=== PATIENT | male | born 1935 | race Caucasian/White ===

== ENCOUNTER → 2016-11-24 | Outpatient (CLI) | payer OTHER, BC ==
[~2016-11-24] MED LIST: BUDE0.25 INH; CALC625T35 PO; CLR10 PO; FESO4TAB PO; GLCSUNK; METO25TA56 PO; PRD150 PO; VERA120T15 PO; VITAMIND
== END | disposition home or self-care (01) ==
LOC: C.RDSM 14:21
PROVIDERS: ATTEND Physical Medicine & Rehabilitation Sports Medicine
DX: Z96.651 Presence of right artificial knee joint (principal)

== ENCOUNTER → 2016-12-24 | Outpatient (CLI) | payer OTHER, BC | END | disposition home or self-care (01) | LOC: C.LABBC 10:55 | PROVIDERS: ATTEND Urology | DX: N40.1 Benign prostatic hyperplasia with lower urinary tract symptoms (principal) ==

== ENCOUNTER → 2017-06-29 | Outpatient (CLI) | payer OTHER, BC | END | disposition home or self-care (01) | LOC: C.PATHSPEC 17:34 | PROVIDERS: ATTEND Surgery | DX: C44.42 Squamous cell carcinoma of skin of scalp and neck (principal) ==

== ENCOUNTER → 2017-07-24 | Outpatient (CLI) | payer OTHER, BC | END | disposition home or self-care (01) | LOC: C.LABSPEC 14:46 | PROVIDERS: ATTEND Nurse Practitioner Family | DX: R39.15 Urgency of urination (principal); R35.0 Frequency of micturition ==

== ENCOUNTER → 2017-08-25 | Outpatient (CLI) | payer OTHER, BC | END | disposition home or self-care (01) | LOC: C.LABSPEC 17:07 | PROVIDERS: ATTEND Nurse Practitioner Adult Health | DX: R35.0 Frequency of micturition (principal) ==

== ENCOUNTER → 2017-11-23 | Outpatient (CLI) | payer OTHER, BC ==
[~2017-11-23] MED LIST changes: +DABI150C3 PO; -PRD150 PO
== END | disposition home or self-care (01) ==
LOC: C.RDSM 08:00
PROVIDERS: ATTEND Physical Medicine & Rehabilitation Sports Medicine
DX: Z96.651 Presence of right artificial knee joint (principal)

== ENCOUNTER → 2017-12-01 | Outpatient (CLI) | payer OTHER, BC ==
[2017-12-01 11:01] LABS: HEMATOCRIT 42.7 % (42-52); HEMOGLOBIN 14.5 g/dL (14.0-18.0); MEAN CELL VOLUME 97.5 fL (80-100); MEAN CORPUSCULAR HEMOGLOBIN 33.1 pg (25-34); MEAN PLATELET VOLUME 10.1 fL (7.4-10.4); PLATELET COUNT 175 K/uL (130-400); RED CELL DISTRIBUTION WIDTH CV 13.9 % (11.5-14.5); RED CELL DISTRIBUTION WIDTH SD 49.7 fL (36.4-46.3); WHITE BLOOD COUNT 4.65 K/uL (4.8-10.8)
[2017-12-01 11:31] LABS: ALBUMIN 3.4 gm/dl (3.4-5.0); ALT/SGPT 37 U/L (12-78); AST/SGOT 27 U/L (15-37); BLOOD UREA NITROGEN 19 mg/dl (7-18); CALCIUM 9.3 mg/dl (8.5-10.1); CARBON DIOXIDE 29 mmol/L (21-32); CHOLESTEROL 167 mg/dl (0-200); CREATININE 1.06 mg/dl (0.60-1.40); GLUCOSE 95 mg/dl (70-99); SODIUM 138 mmol/L (136-145); TRANSFERRIN 244 mg/dl (200-360)
[2017-12-01 11:34] LABS: ALKALINE PHOSPHATASE 81 U/L (45-117); LDL CHOLESTEROL CALCULATED 94 mg/dl; TOTAL PROTEIN 7.3 gm/dl (6.4-8.2)
== END | disposition home or self-care (01) ==
LOC: C.LABBC 07:43
PROVIDERS: ATTEND Internal Medicine Interventional Cardiology
DX: I48.0 Paroxysmal atrial fibrillation (principal)

== ENCOUNTER 2018-12-22 05:20 | Observation (INO) ==
--- NOTE | 2018-12-01 12:12 | Anesthesiology Consultation ---
Date of Service December 01, 2018 Assessment & Plan (1) Encounter for pre-operative examination: Chart Review Chart Review: Acceptable Risk for Surgery and Patient seen in Pre Admission Testing Consults Requested medical & cardiac (NATY Traore (12/09/18) & Dr. Baker (12/07/18)) Patient was seen by Dr. Alberto on 12/03 for device (pacer) check after there was a lack of ventricular capture on EKG. " As near as I can tell he has been in atrial fibrillation since his last visit, the pacemaker diagnostics may not be complete because his atrial fibrillation sensing is quite low and there are times when he does not sense properly. The pacing threshold is up somewhat, it is 2 V today and he is programmed to 2.4 V. The lead impedance trend is not terribly abnormal although there is a very gradual increase in impedance since his last visit but still well within the normal range. He does space 55% of the time in the ventricle, but that is likely the way the device is programmed ( with rate response on) rather than a requirement to pace. I therefore reprogrammed the device to VVI mode at 50 bpm and increase the output to 4 V. This will be safe for the time being and we will follow the lead." Cardio note from visit on 12/07/18 states that patient is doing well from a cardiovascular standpoint. "He is felt to be low surgical risk to proceed with inguinal hernia repair without additional cardiac testing/intervention. He can hold his Pradaxa for 48 hours prior to the procedure and restart as soon as deemed safe from a surgical standpoint." PCP note from visit on 12/09/18. "The patient was found to be at acceptable cardiopulmonary risk for the planned procedure and may proceed as scheduled." Teaching & Discussion Pre-Anesthesia Teaching/Discussion Notes: Instructed NPO after midnight before surgery, except medications with 15 cc of water. Medication instructions provided according to the PAT guidelines. History Surgery Operation Date: 12/22/18 07:00 Proposed Procedures p Right Laparoscopic Inguinal Hernia repair, Possible Laparoscopic Left Inguinal Hernia Repair, Possible Open - Cristian Youssef DO, FACS Height/Weight Height: 6 ft 1 in Weight: 90.4 kg Allergies Allergy/AdvReac Type Severity Reaction Status Date / Time Penicillins Allergy Mild RASH Verified 11/24/18 09:41 Medications Home Medications Medication Instructions Recorded Confirmed Last Taken calcium polycarbophil [Fiber 1,250 mg PO BID 11/24/18 11/24/18 Unknown (calcium polycarbophil)] cholecalciferol (vitamin D3) 1,000 unit PO QPM 11/24/18 11/24/18 Unknown [Vitamin D3] dabigatran etexilate [Pradaxa] 150 mg PO BID 11/24/18 11/24/18 Unknown glucosamine-chondroitin 1 tab PO BID 11/24/18 11/24/18 Unknown loratadine 10 mg PO DAILY PRN 11/24/18 11/24/18 Unknown verapamil 240 mg PO QPM 11/24/18 11/24/18 Unknown Past Medical History Medical History Atrial fibrillation Chronic obstructive pulmonary disease History of cerebral hemorrhage HX OF IN 2010, PT HIT HEAD ON A WATERSLIDE WHILE ON VACATION. PT WAS ADMITTED AND MONITORED FOR SEVERAL DAYS, NO SURGICAL INTERVENTION. Pacemaker Biotronik EVIADRT Implanted 05/13/16. Mode DDD-CLS. Past Surgical History Surgical History History of surgery PACEMAKER IMPLANT History of surgery UVELECTOMY History of total knee replacement RIGHT Past Anesthesia History No Hx of Anesthesia Complications and No Family Hx of Anesthesia Complications History of PONV No Motion Sickness Screening History of Motion Sickness: No (Not since childhood) Social History Smoking Status: Former smoker tobacco type: cigarettes Smoking cigarettes per day: QUIT IN 1984. HX OF 3PPD x 25-30 years Do You Dip or Chew Tobacco: No Hx Alcohol Use: Yes Alcohol type: other alcohol intake frequency: a few times a week Alcohol Intake Frequency Comment: 4-5 DRINKS PER WEEK Hx Substance Use: No substance use type: does not use Exercise / Class Metabolic Activity II 4-5 Yardwork/Stairs/Walk up hill (Walks dog 3 times per day. Prompt Care Rn comes to house 2 times per week. Able to climb FOS. Denies CP with FOS. Does get SOB if he runs up 3 FOS consecutively. ) Review of Systems Patient denies chest pain, shortness of breath, reflux (if he takes pills on empty stomach only), cough, wheezing, +RANGEL (gets RANGEL if he runs up 3 FOS consecutively) +joint pain (left knee) + palpitations Physical Exam Vital Signs BP: 132/85 P: 71 R: 18 T: 97.9 SPO2: 95% on RA ENMT Mouth: + dental restorations Thyromental Distance: < 3.5 Finger Breadths (3) Mallampati Class: II Mouth / Teeth: 2 1. Uvulectomy Neck normal visual inspection and trachea midline; neck extension not limited Respiratory normal respiratory effort Auscultation: lungs clear to auscultation bilaterally Cardiovascular Heart Sounds: no murmur Vessels: no carotid bruit Irregularly, irregular rate/rhythm Neurologic moves all extremities Psychiatric Orientation: alert and oriented x 3 Testing Electrocardiogram Date: 12/01/18 Findings: + AFIB @ (73) Possible lack of ventricular capture (last complex). A. Fib with occasional ventricular paced complexes. RBBB. When compared with ECG of 05/13/16, ventricular rate has decreased by 19bpm and possible loss of ventricular capture is now present. (Patient was brought in to see Dr. Alberto because of this result). Chest X-Ray Date: 12/01/18 FINDINGS: Mild stable cardia megaly. Mild emphysematous change. Tortuous thoracic aorta. No focal infiltrative process. Bipolar cardiac pacemaker in good position. IMPRESSION: Mild emphysematous change. No acute process. Laboratory Results 12/01/18 12:40 12/01/18 12:40
--- NOTE | 2018-12-01 12:31 | PAT Medication Instructions ---
Medication Instructions Date of Service December 01, 2018 Home Medications calcium polycarbophil [Fiber] 1,250 mg PO BID cholecalciferol (vitamin D3) 1,000 unit PO QPM dabigatran etexilate [Pradaxa] 150 mg PO BID glucosamine-chondroitin 1 tab PO BID loratadine 10 mg PO DAILY PRN verapamil 240 mg PO QPM ASK your prescriber and surgeon dabigatran etexilate [Pradaxa] 150 mg PO BID STOP taking 2 weeks before surgery glucosamine-chondroitin 1 tab PO BID DO NOT take the morning of surgery calcium polycarbophil [Fiber] 1,250 mg PO BID loratadine 10 mg PO DAILY PRN Take morning of surgery NOTHING TO EAT OR DRINK AFTER MIDNIGHT: Take evening before surgery calcium polycarbophil [Fiber] 1,250 mg PO BID cholecalciferol (vitamin D3) 1,000 unit PO QPM verapamil 240 mg PO QPM Other Notes If you have any questions please call us at [phone] or [phone] or [phone] or [phone]
[2018-12-01 13:05] LABS: Basophils # (auto) 0.02 K/uL (0-0.2); Basophils % (auto) 0.4 %; Eosinophils # (auto) 0.06 K/uL (0-0.5); Eosinophils % (auto) 1.1 %; Hematocrit (blood only) 43.3 % (42-52); Hemoglobin 14.5 g/dL (14.0-18.0); Immature Granulocytes # (auto) 0.01 K/uL (0.00-0.02); Immature Granulocytes % (auto) 0.2 %; Lymphocytes # (auto) 1.33 K/uL (1.2-3.4); Lymphocytes % (auto) 23.9 %; Mean Corpuscular Hgb Conc 33.5 g/dL (32-36); Mean Corpuscular Volume 97.7 fL (80-100); Mean Platelet Volume 9.9 fL (7.4-10.4); Monocytes # (auto) 0.47 K/uL (0.11-0.59); Monocytes % (auto) 8.5 %; Neutrophils # (auto) 3.67 K/uL (1.4-6.5); Neutrophils % (auto) 65.9 %; Platelet Count 190 K/uL (130-400); RDW Coefficient of Variation 14.3 % (11.5-14.5); Red Blood Count 4.43 M/uL (4.7-6.1); White Blood Count 5.56 K/uL (4.8-10.8)
--- NOTE | 2018-12-01 13:23 | XRay Report ---
XR chest Pre-admission PA/Lat CLINICAL HISTORY: pat preoperative evaluation COMPARISON STUDY: 05/31/2014 FINDINGS: Mild stable cardia megaly. Mild emphysematous change. Tortuous thoracic aorta. No focal inf iltrative process. Bipolar cardiac pacemaker in good position. IMPRESSION: Mild emphysematous change. No acute process. The above report was generated using voice recognition software. It may contain grammatical, syntax or spelling errors. Electronically signed by: Amandeep Wilkerson M.D. 12/01/2018 1:21 PM
[2018-12-01 13:32] LABS: Albumin Level 3.6 gm/dl (3.4-5.0); BUN Creatinine Ratio 16.3 (10-20); Bilirubin Direct 0.2 mg/dl (0-0.2); Calcium 9.2 mg/dl (8.5-10.1); Creatinine Clr Calc Pharmacy 64.6 ml/min; Est GFR (African American) 79.1; Est GFR (Non-African American) 68.3; Potassium 4.4 mmol/L (3.5-5.1)
[2018-12-01 13:35] LABS: Bilirubin,Total 0.6 mg/dl (0.2-1); Total Protein 7.4 gm/dl (6.4-8.2)
[2018-12-22] MEDS ORDERED: LR 15ML/HR IV SCH (06:00)
[2018-12-22] MEDS ORDERED: CLINDAMYCIN 900 MG / 50ML D5W IV SCH (06:00)
[2018-12-22 06:07] LABS: INR 1.1 (0.9-1.1); Partial Thromboplastin Ratio 1.1; Partial Thromboplastin Time 29.6 Seconds (21.0-31.0)
[2018-12-22] MEDS ORDERED: BUPIVACAINE 0.5 % 5 MG/1 ML MPF 30ML VIAL ONE (06:41)
[2018-12-22] MEDS ORDERED: PROPOFOL IV EMULSION 10 MG/ML 20 ML VIAL IV ONE (06:44)
[2018-12-22] MEDS ORDERED: ePHEDrine sulfate 50 MG/ML AMP ONE (06:44)
[2018-12-22] MEDS ORDERED: GLYCOPYRROLATE 0.2 MG/ML VIAL ONE (06:44)
[2018-12-22] MEDS ORDERED: LIDOCAINE HCL 2% 2 ML VIAL/AMP(20MG/ML) INFIL ONE (06:44)
[2018-12-22] MEDS ORDERED: SUCCINYLCHOLINE CHLORIDE 20 MG/ML 10 ML VIAL ONE (06:44)
[2018-12-22] MEDS ORDERED: fentaNYL citrate 100 MCG/2 ML VIAL ONE (06:44)
[2018-12-22] MEDS ORDERED: PHENYLEPHRINE HCL 10 MG/ML VIAL ONE (06:44)
[2018-12-22] MEDS ORDERED: NEOSTIGMINE METHYLSULFATE 5 MG/5 ML SYR ONE (06:44)
[2018-12-22] MEDS ORDERED: ONDANSETRON INJ 2 MG/ML 2 ML VIAL ONE (06:44)
[2018-12-22] MEDS ORDERED: DEXAMETHASONE SOD INJ 4 MG/ML VIAL ONE (06:44)
--- NOTE | 2018-12-22 06:56 | History & Physical Bridge Note ---
Date of Service December 22, 2018 History & Physical Bridge Note I have examined the patient, reviewed the History & Physical and in the interval since the performance of the History & Physical I have noted the following changes of clinical significance: no changes noted
[2018-12-22] MEDS ORDERED: CISATRACURIUM BESYLATE IV SOLN 2 MG/ML 10 ML VIAL IV ONE (07:14)
[2018-12-22] MEDS ORDERED: ATROPINE SULFATE 0.1 MG/ML 10ML SYR IV PRN (08:00)
[2018-12-22] MEDS ORDERED: HYDROmorphone INJ 1 MG/ML SYRINGE IV PRN (08:00)
[2018-12-22] MEDS ORDERED: NALOXONE HCL 0.4 MG/1 ML VIAL/CARP IV PRN (08:00)
[2018-12-22] MEDS ORDERED: PROMETHAZINE HCL 12.5 MG in SODIUM CHLORIDE 0.9% 50 ML IV PRN (08:00)
[2018-12-22] MEDS ORDERED: ePHEDrine sulfate 50 MG/ML AMP IV PRN (08:00)
[2018-12-22] MEDS ORDERED: ONDANSETRON INJ 2 MG/ML 2 ML VIAL IV PRN ×2 (08:00→10:34)
[2018-12-22] MEDS ORDERED: LABETALOL HCL IV 5 MG/ML 20ML IV PRN (08:00)
[2018-12-22] MEDS ORDERED: FLUMAZENIL 0.1 MG/1 ML 10 ML VIAL IV PRN (08:00)
[2018-12-22] MEDS ORDERED: LIDOCAINE 2% 20 MG/ML 5 ML SYR IV ONE (08:13)
[2018-12-22] MEDS ORDERED: ePHEDrine sulfate 50 MG/ML SYR ONE (08:13)
[2018-12-22] MEDS ORDERED: PHENYLEPHRINE 100MCG/ML 5ML SYR ONE (08:13)
--- NOTE | 2018-12-22 09:04 | Operative Report ---
Post Operative Report Pre & Post Diagnosis Operation Date: 12/22/18 07:00 Pre-Op Diagnosis: Right Inguinal Hernia Post-Op Diagnosis: Right Inguinal Hernia Procedure Operation Date: 12/22/18 07:00 Actual Procedures p Right Laparoscopic Inguinal Hernia Repair(Right) - Cristian Youssef DO, LISA Surgeon Cristian Youssef DO, LISA Bag Machine Helper Fran Hines PA-C Estimated Blood Loss 7 Findings Consistent with Post-Op Diagnosis Large, heavily scarred indirect right inguinal hernia. Vas deferens part of the spermatic cord incidentally rate divided during case. Good hemostasis. Discussed with Dr. Ko from urology, recommended expectant management rather than orchiectomy. Pro-label drier mesh placed on the right. No obvious inguinal hernia on the left. Specimens None Anesthesia Type General Complications Division of vas deferens and part of spermatic cord. Disposition Accompanied Patient To Recovery: No Disposition: Recovery Room Indications 83-year-old male with symptomatic moderate to large sized right inguinal hernia. Discussed his options to include open versus laparoscopic repair. Patient elects for laparoscopic repair. Plan for laparoscopic right inguinal hernia repair, possible left. The risks of the procedure were discussed, all questions were answered, and the patient agreed to proceed with surgery as planned. Description of Procedure The patient was properly identified, consented, and taken to the operating room where he was placed in the supine position. General endotracheal anesthesia was induced. SCDs and a safety belt were placed. A champagne catheter was placed. Preoperative antibiotics were administered. The patient's groins and abdomen were prepped and draped in the standard sterile fashion. Surgical timeout was performed and all parties were in agreement that this was the correct patient and procedure to be performed and we continued as planned. A transverse infraumbilical incision was made to the left of midline with electrocautery and deepened down to the fascia with blunt dissection. A transverse incision was made in the anterior rectus sheath on the left. The rectus muscle was pulled laterally exposing the posterior rectus sheath. A large Teressa was used to bluntly dissect the preperitoneal space down to the pubic symphysis. This was then replaced with a laparoscopic preperitoneal dissection balloon, which was inflated under direct visualization and held in place for approximately 30 seconds. This was then removed and the preperitoneal space was insufflated with carbon dioxide which the patient tolerated without incident. Two 5 mm ports were then placed in the midline. Dissection started on the right, beginning laterally at the anterior superior iliac spine. Be's ligament was then dissected medially. The cord structures were circumferentially dissected. A large indirect inguinal hernia was noted. It was significantly scarred and the dissection was quite difficult. During the course of the dissection it appeared that we had divided the vas deferens. A firm remnant was clipped. Part of the spermatic cord was also divided. There was still's some portions of the cremaster and venous plexus present. The hernia sac was reduced. I discussed the case with Dr. Ko from urology , and since there is good possibility for collateral blood supply, we agreed to forego orchiectomy at this time. The contralateral side was briefly examined and no obvious hernia was noted. I decided against any further dissection on the left to prevent injury to the testicle as well. Progrip mesh was placed on the right and covered the direct, indirect, and femoral spaces. The mesh was held in place, the ports were removed, and the space was allowed to collapse. The anterior rectus sheath fascia was closed with 3-0 Vicryl suture. The skin of all port sites were closed with 4-0 Monocryl subcuticular suture, and Dermabond was placed over the incisions. The patient was extubated in the operating room and taken to the PACU for recovery without apparent incident. Any air in the scrotum was reduced, and the testicles were confirmed to be in the scrotum. All sponge, instrument, and needle counts were correct at the conclusion of the procedure. The patient tolerated the procedure well. After this case I discussed the intraoperative findings with the . The physician's library assistant was present and scrubbed for the entire the case. He was critical in positioning the patient, prepping and draping, retraction exposure, closure of the incisions, placement of the dressings. I attest to the content of the Intraoperative Record and any orders documented therein. Any exceptions are noted below.
--- NOTE | 2018-12-22 09:57 | Anesthesiology Progress Note ---
Date of Service December 22, 2018 Anesthesia Post Procedure Vital Signs Vital Signs: Temp Pulse Pulse Resp BP BP Pulse Ox 12/22/18 09:45 73 15 106/70 97 12/22/18 09:35 71 14 121/71 99 12/22/18 09:25 73 17 125/75 96 12/22/18 09:19 36.3 C L 80 16 119/75 96 12/22/18 05:44 36.5 C 65 18 158/89 H 98 Notes Mental Status: alert / awake / arousable Patient Amnestic to Procedure: Yes Nausea / Vomiting: adequately controlled Pain: adequately controlled Airway Patency, RR, SpO2: stable & adequate BP & HR: stable & adequate Hydration State: stable & adequate Anesthetic Complications: no major complications apparent
[2018-12-22] MEDS ORDERED: MoRPHine SULFATE 2 MG/ML CARP IV PRN (10:34)
[2018-12-22] MEDS ORDERED: OXYCODONE/ACETAMINOPHEN 5mg/325mg TAB PO PRN ×2 (10:34)
[2018-12-22] MEDS ORDERED: LACTATED RINGER'S 1,000 ML IV SCH (10:45)
[2018-12-22] MEDS ORDERED: VERAPAMIL HCL 240 MG TABCR PO SCH (21:00)
--- NOTE | 2018-12-23 09:34 | Surgery Progress Note ---
Date of Service December 23, 2018 Assessment & Plan (1) Right inguinal hernia: doing well, ok for discharge Subjective tolerating diet, some testicular swelling but no pain, minimal right groin pain Physical Exam 2 Vital Signs (Past 24 Hours): Last Vital Signs Temp 36.6 C 12/23/18 07:05 Pulse 72 12/23/18 07:05 Resp 16 12/23/18 07:05 BP 128/75 12/23/18 07:05 Pulse Ox 95 12/23/18 07:05 Gastrointestinal (Abdomen): Inspection/Auscultation: + abdominal surgical incision (clean, dry) Percussion/Palpation: abdomen soft right testicle egg sized, nontender, some penile ecchymosis
--- NOTE | 2018-12-27 19:16 | Discharge Summary ---
PRIMARY DISCHARGE DIAGNOSIS: Right inguinal hernia. PROCEDURE PERFORMED: Right laparoscopic inguinal hernia repair. HOSPITAL COURSE: The patient is an 83-year-old male with large right inguinal hernia taken to the operating room for laparoscopic repair. Intraoperatively the hernia was large, heavily scarred, indirect hernia. The vas deferens and part of the spermatic cord were incidentally divided during dissection. The procedure was well tolerated. He was transferred to the surgical floor for overnight observation as was the plan preoperatively. On postoperative day 1, he was tolerating diet and oral analgesics. He was not having any testicular pain. He did have some right testicular swelling but no pain. His incisions were clean and dry. He was stable for discharge. DISCHARGE INSTRUCTIONS: Discharge home. Follow up with Dr. Youssef in 1-2 weeks as planned. DISCHARGE MEDICATIONS: Percocet 1-2 tablets every 4 hours as needed, Pradaxa 150 mg p.o. b.i.d., verapamil 240 mg daily, loratadine 10 mg daily, glucosamine supplement, vitamin D3 supplement, and fiber supplement.
== END 2018-12-23 12:03 | disposition home or self-care (01) ==
LOC: ASU 05:20 → 3N 05:20

== ENCOUNTER 2023-02-10 12:53 | Inpatient (IN) ==
--- NOTE | 2023-02-10 13:10 | ED Triage Note ---
Date of Service February 10, 2023 History of Present Illness This patient was briefly evaluated while in triage. An abbreviated physical exam was performed. This patient is a 87-year-old Male who presents to the ED for evaluation of rectal bleeding since been done last night. The patient is currently undergoing chemotherapy for stage IV prostate cancer. The patient has had issues with rectal bleeding while undergoing prior cancer treatment. The patient reports that the rectal bleeding has usually been with constipations. The patient estimates approximately 4 to 5 ounces of blood loss overnight. The patient is taking Eliquis. The patient reports that the blood is a mix of dark and bright red blood. The patient has had polyps on prior colonoscopies. Physical Exam CONSTITUTIONAL: Healthy and well nourished. Patient does not appear in any ac cain distress. HEENT: No conjunctival pallor. RESPIRATORY: Clear to auscultation bilaterally with no wheezing, crackles, rhonchi or stridor. CARDIOVASCULAR: Regular rate and rhythm with no murmurs, rubs or gallops. GASTROINTESTINAL: Bowel sounds present in all quadrants. No abdominal tenderness to palpation INTEGUMENTARY: No rash or other significant dermatologic conditions noted. HEMATOLOGIC: No ecchymosis or petechiae. PSYCHIATRIC: Positive affect. NEUROLOGIC: No focal neurologic deficits noted. Initial orders for labs and / or imaging were placed and patient was placed in the waiting area until a bed is available. Please see further documentation for the full ED course.
--- NOTE | 2023-02-10 13:44 | Emergency Department Note ---
History of Present Illness General Chief complaint: Rectal Bleed Stated complaint: RECTAL BLEEDING, REF BY DR GIO LAWSON Time Seen by Provider: 02/10/23 13:15 History of Present Illness Provider Complaint: + gross hematochezia Onset (ago): hour(s) (13) Pain Consistency: + constant Current Pain Intensity: 0 Relieved By: + none Exacerbated By: + none Context: + history of GI bleed and + anticoagulant use (eliquis); no liver disease, no alcohol abuse or no known esophageal varices Associated symptoms: no abdominal pain, no nausea, no vomiting, no epistaxis, no fever, no chills, no headaches or no shortness of breath Home Medications Medication Instructions Recorded Confirmed Type cholecalciferol (vitamin D3) 25 2,000 unit PO QAM 11/24/18 02/10/23 History mcg (1,000 unit) capsule (Vitamin D3) clindamycin HCl 300 mg capsule 300 mg PO BID PRN PRIOR TO DENTAL 09/06/21 02/10/23 History PROCEDURE calcium [id number] 2 tab PO BID 12/18/21 02/10/23 History rf-[id number] 250 mg calcium-500 unit tablet (Prosteon) acetaminophen 325 mg capsule 650 mg PO QID PRN Pain 12/30/21 02/10/23 History (Tylenol) verapamil 240 mg tablet,extended 360 mg PO QPM #135 tabs 03/24/22 02/10/23 Rx release mometasone 220 mcg/actuation(120 1 inh inhalation DAILY #1 ea 04/24/22 02/10/23 Rx doses)breath activated powder inhaler ([facility]) azelastine 137 mcg (0.1 %) nasal See Rx Instructions .Route 05/02/22 02/10/23 Rx spray aerosol .COMPLEX #30 mL apixaban 5 mg tablet (Eliquis) 5 mg PO BID #180 tabs 06/09/22 02/10/23 Rx alfuzosin 10 mg tablet,extended 10 mg PO DAILY #90 tabs 07/14/22 02/10/23 Rx release 24 hr (Uroxatral) hydrocortisone 2.5 % topical cream 1 applic MO DAILY PRN hemorrhoids 09/17/22 02/10/23 Rx with perineal applicator #30 grams (Proctozone-HC) leuprolide 7.5 mg (1 month) 7.5 mg subcut ONCE C61 #1 ea 11/11/22 02/10/23 Rx subcutaneous syringe leuprolide 7.5 mg (1 month) 7.5 mg subcut ONCE #1 ea 01/09/23 02/10/23 Rx subcutaneous syringe Allergies Allergy/AdvReac Type Severity Reaction Status Date / Time Penicillins Allergy Mild RASH Verified 01/08/23 11:01 Past Med/Surg History Medical History Acquired deviated nasal septum Cardiac pacemaker Chronic obstructive pulmonary disease COPD (chronic obstructive pulmonary disease) De Quervain's tenosynovitis Elevated prostate specific antigen (PSA) Enlarged prostate Enlarged prostate with lower urinary tract symptoms (LUTS) Epistaxis History of cerebral hemorrhage HX OF IN 2010, PT HIT HEAD ON A WATERSLIDE WHILE ON VACATION. PT WAS ADMITTED AND MONITORED FOR SEVERAL DAYS, NO SURGICAL INTERVENTION. 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) Seasonal allergies Sleep apnea Snoring Stroke syndrome Umbilical hernia Vitamin D deficiency Surgical History Cardiac pacemaker PLACED AND REPLACED-SINCE 2007 History of inguinal hernia repair History of total knee replacement RIGHT History of umbilical hernia repair Family History Father Myocardial infarction Sister Allergies Ovarian cancer Brother Cancer Prostate Cancer Other Coronary heart disease No family history of adverse response to anesthesia No family history of bleeding disorder Denies family history of Prostate cancer Breast cancer Colorectal cancer Social History Smoking Status: Former smoker Tobacco Type: Cigarettes Age Started Using Tobacco: 19; Age Quit Using Tobacco: 50; packs per day: 3; Cigarettes Per Day: 3 PPD; Second Hand Exposure: No; Do You Dip or Chew Tobacco: No; Tobacco Cessation Education Requested by Patient: No Hx Alcohol Use: Yes Alcohol type: beer and hard liquor Alcohol Intake Frequency: Monthly or Less Hx Substance Use: No Preferred Language: Faroese Communication Ability: Effective Visual Impairment: No Limitations Hearing Ability: Hard of Hearing Event Planning Intern Required: No Beliefs That Will Affect Care: None marital status: Current Living Situation: Spouse Current Living Situation Comment: and dog current occupational status: retired Other Information That Helps Us Care for You: No Feels Safe at Home: Yes Safety Concerns: Feels Safe At This Time Childhood Exposure to Second-Hand Smoke: Yes caffeine: Yes during the past year weight has: remained stable Dental Care, Regularly: Yes Physical Activity Frequency: 1-2 Times per Week Seatbelt Use: always Sunscreen Use: Yes Assistive Devices: CPAP Physical Exam Vital Signs: Vital Signs - 24 hr 02/10/23 13:04 02/10/23 13:54 02/10/23 15:20 Temperature 36.5 C Temperature Source Temporal Artery Sc an Pulse Rate 68 Pulse Rate [Apical ] 74 Pulse Rhythm Regular Pulse Strength Normal Respiratory Rate 18 20 Respiratory Effort / Characteristics Non-Labored Sponta neous Respiratory Depth Normal Respiratory Patter n Regular Blood Pressure 138/78 Blood Pressure [Le ft Arm] 144/85 H Blood Pressure Nurys n 98 Blood Pressure Nurys n [Left Arm] 104 Blood Pressure Pos ition Sitting Pulse Oximetry 97 98 97 Oxygen Delivery Me thod Room Air Room Air Room Air Sepsis Recent Feve r Within 48 Hours No Sepsis New/Unexpla ined Change in Men brock Status No Sepsis Action Take n by Nursing No Action Required 02/10/23 16:24 Temperature Temperature Source Pulse Rate 80 Pulse Rate [Apical ] Pulse Rhythm Pulse Strength Respiratory Rate Respiratory Effort / Characteristics Respiratory Depth Respiratory Patter n Blood Pressure Blood Pressure [Le ft Arm] Blood Pressure Nurys n Blood Pressure Nurys n [Left Arm] Blood Pressure Pos ition Pulse Oximetry Oxygen Delivery Me thod Sepsis Recent Feve r Within 48 Hours Sepsis New/Unexpla ined Change in Men brock Status Sepsis Action Take n by Nursing Physical Exam: Physical Exam GENERAL: He is oriented to person, place, and time. He appears well-developed and well-nourished. He does not appear distressed. HENT: Exam performed. - Head: Normocephalic and atraumatic. - Right Ear: External ear normal. No mastoid erythema - Left Ear: External ear normal. No mastoid erythema EYES: Conjunctivae and EOM are normal. Right eye exhibits no discharge. Left eye exhibits no discharge. No scleral icterus. NECK: Normal range of motion. Neck supple. No JVD present. No tracheal deviation and normal range of motion present. CV: Normal rate, irregular rhythm, normal heart sounds and intact distal pulses. There is no peripheral edema. Palpable radial pulses bue. PULM/CHEST: Effort normal and breath sounds normal. No respiratory distress. No stridor. He has no wheezes. He has no rales. ABD: The abdomen is soft.He has no distension. There is no tenderness. There is no rebound, no guarding. Rectal: Bright red blood per rectum. NEURO: He is alert and oriented to person, place, and time. He has normal strength. No cranial nerve deficit or sensory deficit. Coordination and gait normal. GCS eye subscore is 4. GCS verbal subscore is 5. GCS motor subscore is 6. Cerebellar tests wnl. SKIN: Skin is warm and dry. He is not diaphoretic. PSYCH: He has a normal mood and affect. Behavior is normal. Judgment and thought content normal. Course Course 1315: The patient was evaluated in room C7. A complete history and physical exam was performed Cardiac monitoring: An order was placed for continuous cardiac monitoring. The monitor shows a rate of 70 with atrial flutter rhythm interpreted by or 1530: Vital signs stable. Labs within normal limits. Hemoglobin 11.6. No pain on palpation of abdomen. [facility] serial hemoglobins and GI evaluation. Dr. Ellison team notified. Medical Decision Making Laboratory Data Attestation: I reviewed the patient's lab results. 02/10/23 13:33 02/10/23 13:50 Lab Results 02/10/23 02/10/23 02/10/23 Range/Units 13:33 13:33 13:33 WBC 4.69 L (4.8-10.8) K/ul RBC 3.57 L (4.70-6.10) M/uL Hgb 11.6 L (14.0-18.0) g/dl Hct 34.2 L (42.0-52.0) % MCV 95.8 (80.0-100.0) fL MCH 32.5 (25.0-34.0) pg MCHC 33.9 (32.0-36.0) g/dL RDW Std Deviation 54.6 H (36.4-46.3) fL RDW Coeff of Alyssa 15.5 H (11.5-14.5) % Plt Count 201 (130-400) K/uL MPV 9.4 (9.4-12.4) fL Immature Gran % (Auto) 0.2 % Neut % (Auto) 79.0 % Lymph % (Auto) 11.5 % Coryell % (Auto) 7.2 % Eos % (Auto) 1.5 % Baso % (Auto) 0.6 % Neut # (Auto) 3.70 (1.40-6.50) K/uL Lymph # (Auto) 0.54 L (1.2-3.4) K/uL Coryell # (Auto) 0.34 (0.11-0.59) K/uL Eos # (Auto) 0.07 (0-0.50) K/uL Baso # (Auto) 0.03 (0-0.2) K/uL Immature Gran # (Auto) 0.01 (0.01-0.20) K/uL PT 11.3 (9.0-12.0) Seconds INR 1.1 (0.9-1.1) APTT 28.0 (21.0-31.0) Seconds PTT Ratio 1.0 Sodium (136-145) mmol/L Potassium (3.5-5.1) mmol/L Chloride (98-107) mmol/L Carbon Dioxide (21-32) mmol/L Anion Gap (3-11) BUN (6-23) mg/dl Creatinine (0.6-1.4) mg/dl Est Cr Clr Drug Dosing ml/min Est GFR ( Amer) ml/min Est GFR (Non-Af Amer) ml/min BUN/Creatinine Ratio (10-20) Glucose (70-99(Fasting)) mg/dl Calcium (8.6-10.3) mg/dl Total Bilirubin (0.2-1.0) mg/dl Direct Bilirubin (0-0.2) mg/dl AST (13-39) U/L ALT (7-52) U/L Alkaline Phosphatase (34-104) U/L Total Protein (6.0-8.3) gm/dl Albumin (3.4-5.0) gm/dl Lipase (11-82) U/L SARS-CoV-2, RNA, NAAT (NEGATIVE) Blood Type A Positive Antibody Screen NEGATIVE 02/10/23 02/10/23 Range/Units 13:50 13:50 WBC (4.8-10.8) K/ul RBC (4.70-6.10) M/uL Hgb (14.0-18.0) g/dl Hct (42.0-52.0) % MCV (80.0-100.0) fL MCH (25.0-34.0) pg MCHC (32.0-36.0) g/dL RDW Std Deviation (36.4-46.3) fL RDW Coeff of Alyssa (11.5-14.5) % Plt Count (130-400) K/uL MPV (9.4-12.4) fL Immature Gran % (Auto) % Neut % (Auto) % Lymph % (Auto) % Coryell % (Auto) % Eos % (Auto) % Baso % (Auto) % Neut # (Auto) (1.40-6.50) K/uL Lymph # (Auto) (1.2-3.4) K/uL Coryell # (Auto) (0.11-0.59) K/uL Eos # (Auto) (0-0.50) K/uL Baso # (Auto) (0-0.2) K/uL Immature Gran # (Auto) (0.01-0.20) K/uL PT (9.0-12.0) Seconds INR (0.9-1.1) APTT (21.0-31.0) Seconds PTT Ratio Sodium 138 (136-145) mmol/L Potassium 4.0 (3.5-5.1) mmol/L Chloride 104 (98-107) mmol/L Carbon Dioxide 28 (21-32) mmol/L Anion Gap 6 (3-11) BUN 19 (6-23) mg/dl Creatinine 1.12 (0.6-1.4) mg/dl Est Cr Clr Drug Dosing 49.8 ml/min Est GFR ( Amer) 69.1 ml/min Est GFR (Non-Af Amer) 59.6 ml/min BUN/Creatinine Ratio 17.0 (10-20) Glucose 82 (70-99(Fasting)) mg/dl Calcium 9.6 (8.6-10.3) mg/dl Total Bilirubin 0.8 (0.2-1.0) mg/dl Direct Bilirubin 0.2 (0-0.2) mg/dl AST 19 (13-39) U/L ALT 14 (7-52) U/L Alkaline Phosphatase 100 (34-104) U/L Total Protein 7.1 (6.0-8.3) gm/dl Albumin 4.2 (3.4-5.0) gm/dl Lipase 8 L (11-82) U/L SARS-CoV-2, RNA, NAAT NEGATIVE (NEGATIVE) Blood Type Antibody Screen ECG Data Attestation: I personally reviewed and interpreted this ECG as follows: Rate (beats per minute): 66 Rhythm: atrial flutter Findings: + RBBB; no ST depression, no ST elevation or no prolonged QT MDM Narrative 1315: The patient was evaluated in room C7. A complete history and physical exam was performed Cardiac monitoring: An order was placed for continuous cardiac monitoring. The monitor shows a rate of 70 with atrial flutter rhythm interpreted by me 1530: Vital signs stable. Labs within normal limits. Hemoglobin 11.6. No pain on palpation of abdomen. [facility] serial hemoglobins and GI evaluation. Dr. Ellison team notified. Impression & Plan Lower gastrointestinal hemorrhage Discharge Plan Visit Data Chief Complaint: Rectal Bleed Stated Complaint: RECTAL BLEEDING, REF BY DR GIO LAWSON ED Provider: Alfonso Mares Discharge Problem: Lower gastrointestinal hemorrhage Patient Disposition: Admitted As Inpatient Discharge Instructions Interventions: ED Discharge Assessment Last Done: 02/10/23 17:11
--- NOTE | 2023-02-10 13:53 | Electrocardiogram Report ---
Test Reason : Blood Pressure : / mmHG Vent. Rate : 066 BPM Atrial Rate : 267 BPM P-R Int : 000 ms QRS Dur : 148 ms QT Int : 442 ms P-R-T Axes : 000 037 009 degrees QTc Int : 463 ms Atrial flutter with variable A-V block Right bundle branch block Abnormal ECG When compared with ECG of 01-OCT-2020 14:05, Atrial flutter has replaced Atrial fibrillation Nonspecific T wave abnormality now evident in Inferior leads Confirmed by Camacho Iqbal ([id number]) on 02/10/2023 1:53:00 PM Referred By: Confirmed By:Camacho Iqbal
[2023-02-10 14:00] LABS: Basophils # (auto) 0.03 K/uL (0-0.2); Basophils % (auto) 0.6 %; Eosinophils # (auto) 0.07 K/uL (0-0.50); Eosinophils % (auto) 1.5 %; Hematocrit (blood only) 34.2 % (42.0-52.0); Hemoglobin 11.6 g/dl (14.0-18.0); Immature Granulocytes # (auto) 0.01 K/uL (0.01-0.20); Immature Granulocytes % (auto) 0.2 %; Lymphocytes # (auto) 0.54 K/uL (1.2-3.4); Lymphocytes % (auto) 11.5 %; Mean Corpuscular Hemoglobin 32.5 pg (25.0-34.0); Mean Corpuscular Hgb Conc 33.9 g/dL (32.0-36.0); Mean Corpuscular Volume 95.8 fL (80.0-100.0); Mean Platelet Volume 9.4 fL (9.4-12.4); Monocytes # (auto) 0.34 K/uL (0.11-0.59); Monocytes % (auto) 7.2 %; Platelet Count 201 K/uL (130-400); RDW Coefficient of Variation 15.5 % (11.5-14.5); RDW Standard Deviation 54.6 fL (36.4-46.3); Red Blood Count 3.57 M/uL (4.70-6.10); White Blood Count 4.69 K/ul (4.8-10.8)
[2023-02-10 14:28] LABS: INR 1.1 (0.9-1.1); Prothrombin Time 11.3 Seconds (9.0-12.0)
[2023-02-10 16:21] LABS: Albumin Level 4.2 gm/dl (3.4-5.0); Bilirubin Direct 0.2 mg/dl (0-0.2); Bilirubin,Total 0.8 mg/dl (0.2-1.0); Calcium 9.6 mg/dl (8.6-10.3); Creatinine Clr Calc Pharmacy 49.8 ml/min; Est GFR (African American) 69.1 ml/min; Est GFR (Non-African American) 59.6 ml/min; Total Protein 7.1 gm/dl (6.0-8.3)
--- NOTE | 2023-02-10 16:42 | History & Physical Report ---
Date of Service February 10, 2023 Assessment & Plan (1) Acute GI bleeding: Plan: H&H q6h. Transfuse to aim Hgb > 8 in setting of active bleed Stop Eliquis Start pantoprazole 40mg IV BID in case of UGI bleed although this all appears to be lower per description from patient Clear liquid diet Consult gastroenterology (2) Permanent atrial fibrillation: Plan: Currently in a. flutter, rate controlled Stop Eliquis due to GI bleed Continue verapamil for rate control (3) Sleep apnea: Plan: CPAP HS (4) Enlarged prostate with lower urinary tract symptoms (LUTS): Plan: Continue Alfuzosin (5) Hypertension: Plan: Continue verapamil (6) Prostate cancer: Plan: Currently on Leuprolide Plan VTE Prophylaxis - chemical contraindicated Diet - clear liquid Disposition - admit to med/surg Admission and Anticipated Discharge Date Admission Date: February 10, 2023 History of Present Illness Chief Complaint: Bright red blood in stool Primary Care Provider: Fermin Jones III, CRNP Rafa Leal is an 87 year old who presents to the ER with bright red blood in stool. He reports occasional bright red blood with "encarnacion pie" consistency for multiple months which he has been treating as hemorrhoids. He has never had a colonoscopy to investigate this. It became progressively worse over the last week but much worse over the last day with what he estimates as 5oz of blood today in 10 hours. He reports last colonoscopy performed by [facility] less than a decade ago but many years ago. No nausea, vomiting, hematemesis or abdominal pain. Regarding anemia he denies any dizziness, lightheadedness, shortness of breath or chest pain. Due to significant amount of ongoing blood loss and patient being on Eliquis he was referred to medicine for admission and ongoing management of acute GI bleed. Allergies Allergy/AdvReac Type Severity Reaction Status Date / Time Penicillins Allergy Mild RASH Verified 01/08/23 11:01 Home Medications Medication Instructions Recorded Confirmed Type cholecalciferol (vitamin D3) 25 2,000 unit PO QAM 11/24/18 02/10/23 History mcg (1,000 unit) capsule (Vitamin D3) clindamycin HCl 300 mg capsule 300 mg PO BID PRN PRIOR TO DENTAL 09/06/21 02/10/23 History PROCEDURE calcium pxj-S8-U-mag 2 tab PO BID 12/18/21 02/10/23 History lb-alylna-sajtmv 250 mg calcium-500 unit tablet (Prosteon) acetaminophen 325 mg capsule 650 mg PO QID PRN Pain 12/30/21 02/10/23 History (Tylenol) verapamil 240 mg tablet,extended 360 mg PO QPM #135 tabs 03/24/22 02/10/23 Rx release mometasone 220 mcg/actuation(120 1 inh inhalation DAILY #1 ea 04/24/22 02/10/23 Rx doses)breath activated powder inhaler (Asmanex Twisthaler) azelastine 137 mcg (0.1 %) nasal See Rx Instructions .Route 05/02/22 02/10/23 Rx spray aerosol .COMPLEX #30 mL apixaban 5 mg tablet (Eliquis) 5 mg PO BID #180 tabs 06/09/22 02/10/23 Rx alfuzosin 10 mg tablet,extended 10 mg PO DAILY #90 tabs 07/14/22 02/10/23 Rx release 24 hr (Uroxatral) hydrocortisone 2.5 % topical cream 1 applic IN DAILY PRN hemorrhoids 09/17/22 02/10/23 Rx with perineal applicator #30 grams (Proctozone-HC) leuprolide 7.5 mg (1 month) 7.5 mg subcut ONCE C61 #1 ea 11/11/22 02/10/23 Rx subcutaneous syringe leuprolide 7.5 mg (1 month) 7.5 mg subcut ONCE #1 ea 01/09/23 02/10/23 Rx subcutaneous syringe Past Med/Surg History Medical History (Updated 02/11/23 @ 00:36 by Cristhian Ellison MD) Acquired deviated nasal septum Cardiac pacemaker Chronic obstructive pulmonary disease COPD (chronic obstructive pulmonary disease) De Quervain's tenosynovitis Elevated prostate specific antigen (PSA) Enlarged prostate Enlarged prostate with lower urinary tract symptoms (LUTS) Epistaxis History of cerebral hemorrhage HX OF IN 2010, PT HIT HEAD ON A WATERSLIDE WHILE ON VACATION. PT WAS ADMITTED AND MONITORED FOR SEVERAL DAYS, NO SURGICAL INTERVENTION. 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) Seasonal allergies Sleep apnea Snoring Stroke syndrome Umbilical hernia Vitamin D deficiency Surgical History Cardiac pacemaker PLACED AND REPLACED-SINCE 2007 History of inguinal hernia repair History of total knee replacement RIGHT History of umbilical hernia repair Family History Father Myocardial infarction Sister Allergies Ovarian cancer Brother Cancer Prostate Cancer Other Coronary heart disease No family history of adverse response to anesthesia No family history of bleeding disorder Denies family history of Prostate cancer Breast cancer Colorectal cancer Social History Smoking Status: Former smoker Tobacco Type: Cigarettes Age Started Using Tobacco: 19; Age Quit Using Tobacco: 50; packs per day: 3; Cigarettes Per Day: 3 PPD; Second Hand Exposure: No; Do You Dip or Chew Tobacco: No; Tobacco Cessation Education Requested by Patient: No Hx Alcohol Use: Yes Alcohol type: beer and hard liquor Alcohol Intake Frequency: Monthly or Less Hx Substance Use: No Preferred Language: Guamanian Communication Ability: Effective Visual Impairment: No Limitations Hearing Ability: Hard of Hearing Neuropsychologist Required: No Beliefs That Will Affect Care: None marital status: Current Living Situation: Spouse Current Living Situation Comment: and dog current occupational status: retired Other Information That Helps Us Care for You: No Feels Safe at Home: Yes Safety Concerns: Feels Safe At This Time Childhood Exposure to Second-Hand Smoke: Yes caffeine: Yes during the past year weight has: remained stable Dental Care, Regularly: Yes Physical Activity Frequency: 1-2 Times per Week Seatbelt Use: always Sunscreen Use: Yes Assistive Devices: CPAP Review of Systems Review of Systems: All systems reviewed & are unremarkable except as noted in HPI & below Physical Exam Constitutional: WD/WN, vitals as above Eyes: PERRL, conjunctivae normal, anicteric sclerae Respiratory: normal respiratory effort, lungs clear to auscultation Cardiovascular: RRR, no murmur, no edema Gastrointestinal (Abdomen): normal bowel sounds, soft, nontender, no hepatosplenomegaly Musculoskeletal: no cyanosis or clubbing, extremities motor strength 5/5 Skin: no rashes, warm and dry Neurologic: moves all extremities and awake; not confused Psychiatric: A+Ox3, euthymic affect Results & Data Results & Data Vital Signs (Past 12 Hours) Vital Signs Temp Pulse Pulse Resp BP BP Pulse Ox 02/10/23 16:24 80 02/10/23 15:20 74 20 144/85 H 97 02/10/23 13:54 98 02/10/23 13:04 36.5 C 68 18 138/78 97 O2 Del Method 02/10/23 16:24 02/10/23 15:20 Room Air 02/10/23 13:54 Room Air 02/10/23 13:04 Room Air Laboratory Results Abnormal lab results 02/10/23 02/10/23 Range/Units 13:33 13:50 WBC 4.69 L (4.8-10.8) K/ul RBC 3.57 L (4.70-6.10) M/uL Hgb 11.6 L (14.0-18.0) g/dl Hct 34.2 L (42.0-52.0) % RDW Std Deviation 54.6 H (36.4-46.3) fL RDW Coeff of Alyssa 15.5 H (11.5-14.5) % Lymph # (Auto) 0.54 L (1.2-3.4) K/uL Lipase 8 L (11-82) U/L Medications Administered ER Medications Given: None ECG Rate (beats per minute): 66 Rhythm: atrial flutter Comparison ECG Date: from (Oct 01, 2020) Change: the following changes noted (Atrial flutter replaced fibrillation) Code Status & VTE Plan Code Status Full VTE Prophylaxis Plan VTE Prophylaxis will be ordered: No PG Care Time/CCT Total # of Minutes Spent Total Time Spent with Patient: Total time spent is greater than 50% in coordination of care (as documented) at patient's floor/unit and/or counseling patient: Coding Level of Care Code 53329 INT INP/OBS CARE 2/55MIN Diagnoses Acute GI bleeding K92.2 Permanent atrial fibrillation I48.2 Sleep apnea G47.30 Enlarged prostate with lower urinary tract symptoms (LUTS) N40.1 Hypertension I10 Prostate cancer C61
[2023-02-10] MEDS ORDERED: PANTOprazole 40 MG in SYRINGE 0 ML IV STA (16:55)
[2023-02-10] MEDS ORDERED: ACETAMINOPHEN 325 MG TAB PO PRN (17:59)
[2023-02-10] MEDS ORDERED: ONDANSETRON INJ 2 MG/ML 2 ML VIAL IV PRN (17:59)
[2023-02-10 20:02] LABS: Hematocrit (blood only) 32.6 % (42.0-52.0); Hemoglobin 10.9 g/dl (14.0-18.0)
[2023-02-10] MEDS ORDERED: VERAPAMIL HCL 180 MG TABCR PO SCH (21:00)
[2023-02-11 01:22] LABS: Hematocrit (blood only) 30.6 % (42.0-52.0); Hemoglobin 10.2 g/dl (14.0-18.0)
[2023-02-11 08:35] LABS: Basophils # (auto) 0.02 K/uL (0-0.2); Basophils % (auto) 0.6 %; Eosinophils # (auto) 0.07 K/uL (0-0.50); Eosinophils % (auto) 2.2 %; Hematocrit (blood only) 34.1 % (42.0-52.0); Hemoglobin 11.4 g/dl (14.0-18.0); Lymphocytes # (auto) 0.65 K/uL (1.2-3.4); Lymphocytes % (auto) 20.3 %; Mean Corpuscular Hemoglobin 32.3 pg (25.0-34.0); Mean Corpuscular Hgb Conc 33.4 g/dL (32.0-36.0); Mean Corpuscular Volume 96.6 fL (80.0-100.0); Mean Platelet Volume 9.4 fL (9.4-12.4); Monocytes # (auto) 0.33 K/uL (0.11-0.59); Monocytes % (auto) 10.3 %; Neutrophils # (auto) 2.13 K/uL (1.40-6.50); Neutrophils % (auto) 66.6 %; Platelet Count 193 K/uL (130-400); RDW Coefficient of Variation 15.5 % (11.5-14.5); RDW Standard Deviation 55.1 fL (36.4-46.3); Red Blood Count 3.53 M/uL (4.70-6.10)
[2023-02-11] MEDS ORDERED: ALFUZOSIN HCL 10 MG TAB PO SCH (09:00)
[2023-02-11] MEDS ORDERED: FLUTICASONE FUROATE 100MCG 14 PUFFS/INHALER INH SCH (09:00)
[2023-02-11] MEDS ORDERED: PANTOprazole 40 MG in SYRINGE 0 ML IV SCH (09:00)
[2023-02-11] MEDS ORDERED: Nursing to Pharmacy Communication SCH (09:15)
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
[2023-02-11 09:31] LABS: Calcium 9.5 mg/dl (8.6-10.3); Creatinine Clr Calc Pharmacy 55.8 ml/min; Est GFR (African American) 79.2 ml/min; Est GFR (Non-African American) 68.3 ml/min; Potassium 3.9 mmol/L (3.5-5.1)
[2023-02-11 09:57] LABS: Adenovirus F 40/41 PCR Not Detected (NotDetected); Astrovirus PCR Not Detected (NotDetected); Campylobacter PCR Not Detected (NotDetected); Cryptosporidium PCR Not Detected (NotDetected); Cyclospora cayetanensis PCR Not Detected (NotDetected); Entamoeba histolytica PCR Not Detected (NotDetected); Enteroaggregative E.coli(EAEC) Not Detected (NotDetected); Enteropathogenic E.coli (EPEC) Not Detected (NotDetected); Enterotoxigenic E.coli (ETEC) Not Detected (NotDetected); Giardia lamblia PCR Not Detected (NotDetected); Norovirus GI/GII PCR Not Detected (NotDetected); Plesiomonas shigelloides PCR Not Detected (NotDetected); Rotavirus A PCR Not Detected (NotDetected); Salmonella PCR Not Detected (NotDetected); Sapovirus PCR Not Detected (NotDetected); Shiga-like Toxin E.coli (STEC) Not Detected (NotDetected); Shigella/Enteroinvasive E.coli Not Detected (NotDetected); Vibrio cholerae PCR Not Detected (NotDetected); Vibrio species PCR Not Detected (NotDetected); Yersinia enterocolitica PCR Not Detected (NotDetected)
[2023-02-11] MEDS ORDERED: OPTIRAY 320 500ml IV ONE (12:02)
--- NOTE | 2023-02-11 12:27 | CT Scan Report ---
ABDOMEN AND PELVIS CT WITH IV AND ORAL CONTRAST CT DOSE: 780.35 mGycm HISTORY: Follow up study in a patient with history of prostate cancer and acute generalized abdominal pain BRBPR TECHNIQUE: Multiaxial CT images of the abdomen and pelvis were performed following the IV administrat ion of 94 cc of Optiray and oral contrast. A dose lowering technique was utilized adhering to the pr inciples of TRELL. COMPARISON STUDY: 11/13/2020 FINDINGS: Cardiomegaly with coronary artery calcifications. Partially imaged pacer leads. No pericard ial effusion. Partially imaged inferior segment lingula mucous plugging with mild tree-in-bud nodules suggestive of a mild infectious or inflammatory bronchiolitis, similar to prior. Mild right lower lo be bronchiectasis. No pneumatosis or pneumoperitoneum. Unremarkable spleen, moderately atrophic pancr eas and adrenal glands. The gallbladder and liver are within normal limits. There is patency of the h epatic and portal veins. Unremarkable kidneys. No hydronephrosis. Prostamegaly. Circumferential urinary bladder wall thickenin g with perivesicular stranding. Atherosclerosis of aorta without aneurysm. Pathologic right common il iac lymph node measures 2.0 x 0.9 cm on image 247, previously 3.4 x 1.8 cm. Left external iliac chain lymph node on image 29 measures 1.4 x 0.6 cm, previously 1.9 x 1.1 m. No new or progressive lymphade nopathy. Mild nonspecific distal esophageal wall thickening. Colonic diverticulosis. Trace free pelvic fluid. Moderate colonic fecal retention. Mild nonspecific stranding within the left upper quadrant omentum o f unknown clinical significance. Normal appendix. Unremarkable soft tissues. Nondisplaced bilateral s acral insufficiency fractures are new from prior with mild adjacent periostitis. No destructive bone lesions identified. Mid sacral Tarlov cyst. Sigmoidal scoliosis of the imaged spine. IMPRESSION: 1. No bowel obstruction or bowel wall thickening. 2. Extensive colonic diverticulosis without acute diverticulitis. 3. Nonspecific trace free pelvic fluid. 4. Prostamegaly with evidence of chronic bladder outlet obstruction. 5. Decreased size of the pathologic iliac chain lymph nodes compatible with positive treatment respon se. No evidence of new or progressive metastatic disease. 6. Additional findings as above. ACT 112: Negative or not required by law. The above report was generated using voice recognition software. It may contain grammatical, syntax o r spelling errors. Electronically signed by: Liam Huerta M.D. 02/11/2023 12:25 PM
[2023-02-11 13:42] LABS: Hematocrit (blood only) 34.2 % (42.0-52.0); Hemoglobin 11.4 g/dl (14.0-18.0)
--- NOTE | 2023-02-11 13:45 | Communication Note ---
Date of Service: February 11, 2023 CT shows extensive diverticulosis without acute GI pathology noted. Discussed with Dr. Ge. If H/H remains stable and bleeding is not worsening, patient can be arranged for outpatient colonoscopy for further evaluation of his bleeding.
[2023-02-11 15:06] VITALS: BP 125/81; PULSE 67; TEMP 97.7; O2SAT 95
--- NOTE | 2023-02-11 17:32 | Discharge Summary ---
Date of Service February 11, 2023 Admission HPI Per Admitting Provider Rafa Leal is an 87 year old who presents to the ER with bright red blood in stool. He reports occasional bright red blood with "encarnacion pie" consistency for multiple months which he has been treating as hemorrhoids. He has never had a colonoscopy to investigate this. It became progressively worse over the last week but much worse over the last day with what he estimates as 5oz of blood today in 10 hours. He reports last colonoscopy performed by [facility] [place]ology less than a decade ago but many years ago. No nausea, vomiting, hematemesis or abdominal pain. Regarding anemia he denies any dizziness, lightheadedness, shortness of breath or chest pain. Due to significant amount of ongoing blood loss and patient being on Eliquis he was referred to medicine for admission and ongoing management of acute GI bleed. Principal Diagnosis Lower GI Bleed Discharge Exam Constitutional WD/WN, vitals as above Respiratory normal respiratory effort, lungs clear to auscultation Cardiovascular Rate/Rhythm: regular rate and + irregularly irregular Heart Sounds: no murmur Extremities: no edema Gastrointestinal (Abdomen) normal bowel sounds, soft, nontender, no hepatosplenomegaly Psychiatric A+Ox3, euthymic affect Discharge Data Allergies Allergy/AdvReac Type Severity Reaction Status Date / Time Penicillins Allergy Mild RASH Verified 01/08/23 11:01 Consultations 02/10/23 15:25 ED Decision to Admit Stat 02/11/23 00:32 Consult Gastroenterology Routine Ordered Studies 02/11/23 09:07 CT abd pelvis oral and IV con Routine Hospital Course (1) Acute GI bleeding: Resolved after admission-had small blood in stool on AM of 02/11 and then a non bloody stool in afternoon on day of discharge H/H remained exactly the same at 11.4 throughout 24 hrs in hospital which was stable from previous with baseline anemia Some darker blood and clots reported-could be diverticular bleed vs hemorrhoidal No abd pain CT abd/pel no acute GI pathology but with significant diverticulosis GI consult appreciated--> plan for outpt colonoscopy -advised ok to restart Eliquis tomorrow 02/12 if no further bleeding as is high stroke risk and discontinue if has recurrent bleeding -HOLD home Metamucil for now and eat soft diet, take colace bid (2) Permanent atrial fibrillation: Currently in a. flutter, rate controlled ok to resume Eliquis tomorrow as above Continue verapamil for rate control (3) Sleep apnea: CPAP HS (4) Enlarged prostate with lower urinary tract symptoms (LUTS): Continue Alfuzosin follows with Urology for prostate CA (5) Hypertension: Continue verapamil (6) Prostate cancer: Currently on Leuprolide pathologic MERT on CT scan improved from previous Plan VTE Prophylaxis - chemical contraindicated Disposition -dc to home Total Time Total Time Spent Total Time Spent (In Minutes): 35 min Discussed care with at bedside Discharge Plan Discharge Items Patient Disposition: Home - Self-Care Reason For Visit: RECTAL BLEEDING Discharge Diagnosis: Rectal bleeding Condition on Discharge: Good Activity: Resume your previous activity Non-emergency contact: Primary Care Provider and Waiter/Waitress Room Service Call non-emergency contact if: you have any medication questions and your symptoms worsen Follow-up/Referrals: Fermin Jones III, CRNP [Primary Care Provider] - (Follow up within 1-2 weeks) Richy Ge MD [Physician] - (Follow up for colonoscopy within 2-3 weeks) Diet: Low Fiber Addtl Attending Provider Instructions: Please HOLD your Eliquis and restart on 02/12 if no further rectal bleeding. You can take Colace twice a day as a stool softener and HOLD your Metamucil for now. You can also take Miralax in the meantime as needed for constipation. If you experience heavy rectal bleeding, lightheadedness, chest pain, or any other acute issue, please return to the hospital. You will need to have a colonoscopy as an outpatient. If you haven't heard from the GI office in the next 1-2 days, please call their office to schedule this. Pending Studies at Discharge: No Stand-Alone Forms: My [facility], Smoking Cessation Medications and DC Order Prescriptions: New docusate sodium [Colace] 100 mg capsule 100 mg PO BID Qty: 60 0RF Rx Instructions: OTC Continued acetaminophen [Tylenol] 325 mg capsule 650 mg PO QID PRN (Reason: Pain) leuprolide 7.5 mg (1 month) syringe 7.5 mg subcut ONCE Qty: 1 0RF Rx Instructions: C61. Coming on 12/16/22. leuprolide 7.5 mg (1 month) syringe 7.5 mg subcut ONCE Qty: 1 0RF Rx Instructions: C61. Coming on 01/16/23 verapamil 240 mg tablet extended release 360 mg PO QPM Qty: 135 3RF Asmanex Twisthaler 220 mcg/ actuation (120) aerosol powdr breath activated 1 inh inhalation DAILY Qty: 1 3RF Rx Instructions: rinse mouth after use. Eliquis 5 mg tablet 5 mg PO BID Qty: 180 3RF alfuzosin [Uroxatral] 10 mg tablet extended release 24 hr 10 mg PO DAILY Qty: 90 3RF Rx Instructions: administer after the same meal each day azelastine 137 mcg (0.1 %) aerosol,spray See Rx Instructions .ROUTE .COMPLEX Qty: 30 5RF Rx Instructions: Use 1-2 sprays each nostril 1-2 times a day.; administer into each nostril hydrocortisone [Proctozone-HC] 2.5 % cream with perineal applicator 1 applic [place] DAILY PRN (Reason: hemorrhoids) Qty: 30 1RF clindamycin HCl 300 mg capsule 300 mg PO BID PRN (Reason: PRIOR TO DENTAL PROCEDURE) Prosteon 250 mg calcium -500 unit tablet 2 tab PO BID cholecalciferol (vitamin D3) [Vitamin D3] 1,000 unit Capsule 2,000 unit PO QAM Discharge Orders: Discharge Order (Routine); Ordered 02/11/23 Ordered By: Shaye Dewitt Admission Data Admit Date/Time: 02/10/23 16:30 Attending Provider: Shaye Dewitt Admit Provider: Cristhian Ellison Primary Care Provider: Fermin Jones III Other Providers: Cristhian Ellison ; Richy Ge Other Interventions: Discharge Summary Assessment (RN) Last Done: 02/11/23 17:18 Coding Level of Care Code 59972 INP/OBS DISCH >30 MIN Diagnoses Acute GI bleeding K92.2 Permanent atrial fibrillation I48.2 Sleep apnea G47.30 Enlarged prostate with lower urinary tract symptoms (LUTS) N40.1 Hypertension I10 Prostate cancer C61
[2023-02-12] MEDS ORDERED: ALFUZOSIN HCL 10 MG TAB PO SCH (21:00)
== END 2023-02-11 18:29 | disposition home or self-care (01) | DRG 378 ==
LOC: ED 12:53 → SUATTDRO 16:30 → 3N 16:30